=== PATIENT | male | born 1955 | race Caucasian/White ===

== ENCOUNTER 2019-12-08 10:11 | Inpatient (IN) | payer BC, SELFPAY ==
[~2019-12-08] VITALS: Ht 157.5 cm; Wt 71.7 kg
[2019-12-08 10:11] VITALS: BP_SYST 123
[2019-12-08 12:38] LABS: BASOPHILS # (AUTO) 0.1 K/uL (0.0-0.2); BASOPHILS % (AUTO) 0.6 % (0.0-2.0); EOSINOPHILS % (AUTO) 0.5 % (0.0-4.0); HEMOGLOBIN 18.3 g/dL (14.0-18.0); LYMPHOCYTES # (AUTO) 0.5 K/uL (1.0-5.5); LYMPHOCYTES % (AUTO) 5.1 % (20.5-51.5); MEAN CORPUSCULAR HEMOGLOBIN 32 pg (27-31); MEAN CORPUSCULAR HGB CONC 35 % (32-36); MEAN CORPUSCULAR VOLUME 93 fL (79.0-98.0); MONOCYTES # (AUTO) 0.5 K/uL (0.0-1.0); MONOCYTES % (AUTO) 5.1 % (1.7-9.3); NEUTROPHILS # (AUTO) 8.2 K/uL (1.8-7.7); NEUTROPHILS % (AUTO) 88.7 % (40.0-70.0); PLATELET COUNT (AUTO) 437 K/uL (130-430); RED CELL DISTRIBUTION WIDTH 13.1 % (9.0-15.0); WHITE BLOOD COUNT (AUTO) 9.2 K/uL (4.8-10.8)
[2019-12-08 12:47] LABS: CALCIUM 8.2 mg/dL (8.4-11.0); CREATININE 1.39 mg/dL (0.55-1.30); POTASSIUM 3.5 mmol/L (3.5-5.1)
[2019-12-08 12:52] LABS: ALBUMIN 2.4 g/dL (3.4-4.8); TOTAL BILIRUBIN 0.8 mg/dL (0.0-1.0)
[2019-12-08] MEDS ORDERED: NACL 0.9% 1,000 ML IV ONE (13:15)
[2019-12-08 13:18] LABS: INR 1.1 (0.80-1.20); PROTHROMBIN TIME 11.5 SECS (9.5-12.5)
[2019-12-08] MEDS ORDERED: AZITHROMYCIN 500 MG in NS 250 ML IV ONE (13:30)
[2019-12-08] MEDS ORDERED: cefTRIAXone 1 GM IVPB PREMIX 50 ML IV ONE (13:30)
[2019-12-08] MEDS ORDERED: AZITHROMYCIN 500 MG/VIAL (ZITHROMAX) IV ONE (14:00)
[2019-12-08 14:05] LABS: C-REACTIVE PROTEIN QUANT 25.1 mg/dL (0-0.5)
[2019-12-08 15:16] VITALS: BP_SYST 92
[2019-12-08] MEDS ORDERED: ALBUTEROL SULFATE 0.083% 2.5 MG/3 ML VIAL.NEB INH PRN (16:00)
[2019-12-08] MEDS ORDERED: FAMOTIDINE 20 MG TABLET PO ONE (16:00)
[2019-12-08] MEDS: NACL 0.9% 1,000 ML IV SCH (16:02)
[2019-12-08 16:18] VITALS: BP_SYST 115
[2019-12-08 19:02] LABS: BILIRUBIN,URINE NEGATIVE (NEGATIVE); BLOOD, URINE 2+ (NEGATIVE); COLOR,URINE YELLOW (YELLOW); GLUCOSE,URINE NEGATIVE (NEGATIVE); KETONES,URINE NEGATIVE (NEGATIVE); LEUKOCYTE ESTERASE ,URINE NEGATIVE (NEGATIVE); NITRITE, URINE NEGATIVE (NEGATIVE); PH,URINE 5.5 (5.0-8.0); PROTEIN URINE TRACE (NEGATIVE); UROBILINOGEN,URINE 0.2 (0.2-1.0)
[2019-12-08 19:06] LABS: CLARITY/URINE SLIGHTLY HAZY (CLEAR)
[2019-12-08 19:22] LABS: BACTERIA,URINE RARE /HPF (None Seen); RBC,URINE 0-3 /HPF (0-3); WBC,URINE NONE SEEN /HPF (0-3)
[2019-12-08 19:23] LABS: URIC ACID CRYSTALS,URINE 0-10 /HPF (None Seen)
[2019-12-08 20:00] VITALS: BP_SYST 111
[2019-12-09] VITALS: BP_SYST 114
[2019-12-09] MEDS: NACL 0.9% 1,000 ML IV SCH ×3 (02:40→18:22)
[2019-12-09] MEDS ORDERED: MORPHINE 2 MG/ML INJ. SYRINGE IVP ONE ×2 (05:00→07:15)
[2019-12-09] MEDS ORDERED: MORPHINE 2 MG/ML INJ. SYRINGE ONE (05:19)
[2019-12-09 07:04] LABS: BASOPHILS % (AUTO) 0.3 % (0.0-2.0); EOSINOPHILS # (AUTO) 0.1 K/uL (0.0-0.4); EOSINOPHILS % (AUTO) 1.1 % (0.0-4.0); HEMATOCRIT 41.2 % (36-54); LYMPHOCYTES # (AUTO) 0.5 K/uL (1.0-5.5); LYMPHOCYTES % (AUTO) 5.8 % (20.5-51.5); MEAN CORPUSCULAR HEMOGLOBIN 32 pg (27-31); MEAN CORPUSCULAR HGB CONC 34 % (32-36); MEAN CORPUSCULAR VOLUME 93 fL (79.0-98.0); MONOCYTES # (AUTO) 0.5 K/uL (0.0-1.0); MONOCYTES % (AUTO) 5.6 % (1.7-9.3); NEUTROPHILS # (AUTO) 7.4 K/uL (1.8-7.7); NEUTROPHILS % (AUTO) 87.2 % (40.0-70.0); PLATELET COUNT (AUTO) 310 K/uL (130-430); RED BLOOD CELL COUNT(AUTO) 4.42 MIL/uL (4.2-6.2); RED CELL DISTRIBUTION WIDTH 13.2 % (9.0-15.0); WHITE BLOOD COUNT (AUTO) 8.5 K/uL (4.8-10.8)
[2019-12-09 07:15] LABS: ALBUMIN 1.7 g/dL (3.4-4.8); CREATININE 1.23 mg/dL (0.55-1.30); POTASSIUM 3.7 mmol/L (3.5-5.1); THYROID STIMULATING HORMONE 3.38 uIu/mL (0.36-3.74); TOTAL BILIRUBIN 0.9 mg/dL (0.0-1.0)
[2019-12-09 07:19] LABS: CALCIUM 6.9 mg/dL (8.4-11.0)
[2019-12-09] MEDS ORDERED: MORPHINE 2 MG/ML INJ. SYRINGE IVP PRN (08:15)
[2019-12-09] MEDS: FAMOTIDINE 20 MG TABLET PO SCH (08:56)
[2019-12-09 09:21] VITALS: BP_SYST 122
[2019-12-09] MEDS ORDERED: ONDANSETRON HCL 4 MG/2 ML VIAL IVP PRN (12:00)
[2019-12-09] MEDS ORDERED: HYDROmorphone 1 MG INJ. 1 MG/ML AMPUL IVP PRN (12:00)
[2019-12-09 12:09] VITALS: BP_SYST 114
[2019-12-09] MEDS: AZITHROMYCIN 500 MG in NS 250 ML IV SCH (12:16)
[2019-12-09] MEDS: cefTRIAXone 1 GM in D5W 50 ML IV SCH (15:11)
[2019-12-09 16:36] VITALS: BP_SYST 116
[2019-12-09] MEDS ORDERED: ALBUTEROL MDI INHALATION 8 GM INH INH SCH (17:00)
[2019-12-09 20:15] VITALS: BP_SYST 155
[2019-12-09] MEDS: DOCUSATE SODIUM 250 MG CAPSULE PO SCH (20:45)
[2019-12-09] MEDS: ACETAMINOPHEN 325 MG TABLET PO PRN (23:11)
[2019-12-10 00:05] VITALS: BP_SYST 108
[2019-12-10] MEDS: ALBUTEROL SULFATE 0.083% 2.5 MG/3 ML VIAL.NEB INH PRN ×2 (00:56→01:00)
[2019-12-10] MEDS: NACL 0.9% 1,000 ML IV SCH (05:32)
[2019-12-10 06:42] LABS: BASOPHILS % (AUTO) 0.2 % (0.0-2.0); EOSINOPHILS % (AUTO) 0.4 % (0.0-4.0); HEMATOCRIT 37.4 % (36-54); HEMOGLOBIN 12.4 g/dL (14.0-18.0); LYMPHOCYTES # (AUTO) 0.6 K/uL (1.0-5.5); LYMPHOCYTES % (AUTO) 4.3 % (20.5-51.5); MEAN CORPUSCULAR HEMOGLOBIN 31 pg (27-31); MEAN CORPUSCULAR HGB CONC 33 % (32-36); MEAN CORPUSCULAR VOLUME 94 fL (79.0-98.0); MONOCYTES # (AUTO) 0.6 K/uL (0.0-1.0); MONOCYTES % (AUTO) 4.1 % (1.7-9.3); NEUTROPHILS # (AUTO) 12.5 K/uL (1.8-7.7); PLATELET COUNT (AUTO) 280 K/uL (130-430); RED BLOOD CELL COUNT(AUTO) 3.99 MIL/uL (4.2-6.2); RED CELL DISTRIBUTION WIDTH 12.9 % (9.0-15.0); WHITE BLOOD COUNT (AUTO) 13.7 K/uL (4.8-10.8)
[2019-12-10] MEDS: DOCUSATE SODIUM 250 MG CAPSULE PO SCH ×2 (08:15→21:00)
[2019-12-10] MEDS: FAMOTIDINE 20 MG TABLET PO SCH (08:15)
[2019-12-10 08:35] VITALS: BP_SYST 120
[2019-12-10 09:24] LABS: CALCIUM 7.1 mg/dL (8.4-11.0); CREATININE 1.21 mg/dL (0.55-1.30); POTASSIUM 3.8 mmol/L (3.5-5.1)
[2019-12-10 09:29] LABS: ALBUMIN 1.5 g/dL (3.4-4.8); TOTAL BILIRUBIN 0.6 mg/dL (0.0-1.0)
[2019-12-10] MEDS: HYDROXYCHLOROQUINE SULFATE 200 MG TABLET PO SCH ×2 (09:45→22:00)
[2019-12-10 11:53] VITALS: BP_SYST 105
[2019-12-10] MEDS ORDERED: ASCORBIC ACID 500 MG TABLET PO ONE (12:00)
[2019-12-10] MEDS: AZITHROMYCIN 500 MG in NS 250 ML IV SCH (12:19)
[2019-12-10 14:23] LABS: INR 1.2 (0.80-1.20)
[2019-12-10] MEDS: VANCOMYCIN HCL 1,750 MG in NS 500 ML IV SCH (14:53)
[2019-12-10] MEDS: cefTRIAXone 1 GM in D5W 50 ML IV SCH (14:54)
[2019-12-10 16:04] VITALS: BP_SYST 122
[2019-12-10 20:00] VITALS: BP_SYST 106
[2019-12-10] MEDS: ASCORBIC ACID 500 MG TABLET PO SCH (22:13)
[2019-12-11 00:30] VITALS: BP_SYST 106
[2019-12-11] MEDS: NACL 0.9% 1,000 ML IV SCH (07:06)
[2019-12-11 07:45] VITALS: BP_SYST 117
[2019-12-11] MEDS: ASCORBIC ACID 500 MG TABLET PO SCH ×2 (08:18→21:07)
[2019-12-11] MEDS: DOCUSATE SODIUM 250 MG CAPSULE PO SCH (08:18)
[2019-12-11] MEDS: HYDROXYCHLOROQUINE SULFATE 200 MG TABLET PO SCH ×2 (08:18→21:06)
[2019-12-11] MEDS: FAMOTIDINE 20 MG TABLET PO SCH (08:18)
[2019-12-11 08:56] LABS: ALBUMIN 1.5 g/dL (3.4-4.8); CALCIUM 7.1 mg/dL (8.4-11.0); CREATININE 1.03 mg/dL (0.55-1.30); POTASSIUM 3.8 mmol/L (3.5-5.1); TOTAL BILIRUBIN 0.7 mg/dL (0.0-1.0)
[2019-12-11] MEDS ORDERED: HEPARIN SODIUM,PORCINE 5000 UNITS/ML VIAL SUBCUT ONE (09:45)
[2019-12-11 12:00] VITALS: BP_SYST 124
[2019-12-11] MEDS: AZITHROMYCIN 500 MG in NS 250 ML IV SCH (12:31)
[2019-12-11] MEDS: cefTRIAXone 1 GM in D5W 50 ML IV SCH (13:36)
[2019-12-11] MEDS: VANCOMYCIN HCL 1,750 MG in NS 500 ML IV SCH (13:55)
[2019-12-11 16:00] VITALS: BP_SYST 116
[2019-12-11] MEDS: HEPARIN SODIUM,PORCINE 5000 UNITS/ML VIAL SUBCUT SCH (21:08)
[2019-12-11 21:10] VITALS: BP_SYST 130
[2019-12-12 00:40] VITALS: BP_SYST 101
[2019-12-12] MEDS: NACL 0.9% 1,000 ML IV SCH (04:17)
[2019-12-12] MEDS ORDERED: SODIUM CHLORIDE 500 MG TABLET PO ONE (04:45)
[2019-12-12 06:56] LABS: ALBUMIN 1.3 g/dL (3.4-4.8); CALCIUM 7.2 mg/dL (8.4-11.0); CREATININE 1.09 mg/dL (0.55-1.30); PHOSPHORUS 2.2 mg/dL (2.7-4.5); POTASSIUM 3.8 mmol/L (3.5-5.1); TOTAL BILIRUBIN 0.5 mg/dL (0.0-1.0)
[2019-12-12 08:00] VITALS: BP_SYST 129
[2019-12-12] MEDS: ASCORBIC ACID 500 MG TABLET PO SCH ×2 (08:12→20:54)
[2019-12-12] MEDS: FAMOTIDINE 20 MG TABLET PO SCH (08:12)
[2019-12-12] MEDS: HYDROXYCHLOROQUINE SULFATE 200 MG TABLET PO SCH ×2 (08:13→20:54)
[2019-12-12] MEDS: HEPARIN SODIUM,PORCINE 5000 UNITS/ML VIAL SUBCUT SCH ×2 (08:15→20:55)
[2019-12-12] MEDS ORDERED: NAPH,MB-DB/K PH,MBDB 250 MG TAB PO ONE (10:15)
[2019-12-12] MEDS ORDERED: METOPROLOL TARTRATE 25 MG TABLET PO ONE (10:45)
[2019-12-12 12:00] VITALS: BP_SYST 108
[2019-12-12 12:12] VITALS: BP_SYST 129
[2019-12-12] MEDS: AZITHROMYCIN 500 MG in NS 250 ML IV SCH (12:41)
[2019-12-12] MEDS: cefTRIAXone 1 GM in D5W 50 ML IV SCH (13:32)
[2019-12-12] MEDS: VANCOMYCIN HCL 1,500 MG in NS 250 ML IV SCH (15:11)
[2019-12-12 16:00] VITALS: BP_SYST 119
[2019-12-12 20:35] VITALS: BP_SYST 114
[2019-12-12] MEDS: NAPH,MB-DB/K PH,MBDB 250 MG TAB PO SCH (20:54)
[2019-12-13] MEDS ORDERED: VANCOMYCIN HCL 1000 MG/VIAL IV ONE (01:15)
[2019-12-13] MEDS ORDERED: VANCOMYCIN HCL 500 MG/VIAL IV ONE (01:16)
[2019-12-13 01:30] VITALS: BP_SYST 116
[2019-12-13] MEDS: VANCOMYCIN HCL 1,500 MG in NS 250 ML IV SCH (01:30)
[2019-12-13] MEDS: NACL 0.9% 1,000 ML IV SCH ×2 (01:30→22:05)
[2019-12-13 07:27] LABS: ALBUMIN 1.3 g/dL (3.4-4.8); CALCIUM 7.4 mg/dL (8.4-11.0); CREATININE 1.05 mg/dL (0.55-1.30); POTASSIUM 3.7 mmol/L (3.5-5.1); TOTAL BILIRUBIN 0.7 mg/dL (0.0-1.0)
[2019-12-13 08:30] VITALS: BP_SYST 130
[2019-12-13] MEDS: ASCORBIC ACID 500 MG TABLET PO SCH ×2 (08:40→22:05)
[2019-12-13] MEDS: HYDROXYCHLOROQUINE SULFATE 200 MG TABLET PO SCH ×2 (08:40→22:05)
[2019-12-13] MEDS: FAMOTIDINE 20 MG TABLET PO SCH (08:40)
[2019-12-13] MEDS: NAPH,MB-DB/K PH,MBDB 250 MG TAB PO SCH ×2 (08:40→22:05)
[2019-12-13] MEDS: HEPARIN SODIUM,PORCINE 5000 UNITS/ML VIAL SUBCUT SCH ×2 (08:42→22:05)
[2019-12-13 12:00] VITALS: BP_SYST 132
[2019-12-13] MEDS: cefTRIAXone 1 GM in D5W 50 ML IV SCH (13:10)
[2019-12-13 16:00] VITALS: BP_SYST 147
[2019-12-13 20:05] VITALS: BP_SYST 109
[2019-12-13] MEDS: DOXYCYCLINE HYCLATE 100 MG CAPSULE PO SCH (22:05)
[2019-12-13] MEDS ORDERED: METOPROLOL TARTRATE 25 MG TABLET PO ONE (23:45)
[2019-12-14 00:05] VITALS: BP_SYST 120
[2019-12-14] MEDS ORDERED: METOPROLOL TARTRATE 25 MG TABLET ONE (00:05)
[2019-12-14 08:30] VITALS: BP_SYST 121
[2019-12-14] MEDS: METOPROLOL TARTRATE 25 MG TABLET PO SCH ×2 (09:00→21:27)
[2019-12-14] MEDS: ASCORBIC ACID 500 MG TABLET PO SCH ×2 (09:41→20:30)
[2019-12-14] MEDS: HYDROXYCHLOROQUINE SULFATE 200 MG TABLET PO SCH ×2 (09:41→20:30)
[2019-12-14] MEDS: DOXYCYCLINE HYCLATE 100 MG CAPSULE PO SCH ×2 (09:41→20:30)
[2019-12-14] MEDS: FAMOTIDINE 20 MG TABLET PO SCH (09:41)
[2019-12-14] MEDS: NAPH,MB-DB/K PH,MBDB 250 MG TAB PO SCH ×2 (09:41→20:30)
[2019-12-14] MEDS: HEPARIN SODIUM,PORCINE 5000 UNITS/ML VIAL SUBCUT SCH ×2 (09:43→20:29)
[2019-12-14 10:15] LABS: ALBUMIN 1.6 g/dL (3.4-4.8); CALCIUM 7.9 mg/dL (8.4-11.0); CREATININE 1.07 mg/dL (0.55-1.30); POTASSIUM 3.7 mmol/L (3.5-5.1); TOTAL BILIRUBIN 0.9 mg/dL (0.0-1.0)
[2019-12-14 10:26] LABS: C-REACTIVE PROTEIN QUANT 24.5 mg/dL (0-0.5)
[2019-12-14 11:14] LABS: BASOPHILS # (AUTO) 0.1 K/uL (0.0-0.2); BASOPHILS % (AUTO) 0.7 % (0.0-2.0); EOSINOPHILS % (AUTO) 0.3 % (0.0-4.0); HEMATOCRIT 38.4 % (36-54); HEMOGLOBIN 12.5 g/dL (14.0-18.0); LYMPHOCYTES # (AUTO) 1.6 K/uL (1.0-5.5); LYMPHOCYTES % (AUTO) 12.6 % (20.5-51.5); MEAN CORPUSCULAR HEMOGLOBIN 31 pg (27-31); MEAN CORPUSCULAR HGB CONC 33 % (32-36); MEAN CORPUSCULAR VOLUME 95 fL (79.0-98.0); MONOCYTES # (AUTO) 0.8 K/uL (0.0-1.0); MONOCYTES % (AUTO) 6.3 % (1.7-9.3); NEUTROPHILS # (AUTO) 10.2 K/uL (1.8-7.7); NEUTROPHILS % (AUTO) 80.1 % (40.0-70.0); PLATELET COUNT (AUTO) 300 K/uL (130-430); RED BLOOD CELL COUNT(AUTO) 4.05 MIL/uL (4.2-6.2); RED CELL DISTRIBUTION WIDTH 13.6 % (9.0-15.0); WHITE BLOOD COUNT (AUTO) 12.7 K/uL (4.8-10.8)
[2019-12-14 11:29] VITALS: BP_SYST 136
[2019-12-14 11:59] LABS: ERYTHROCYTE SEDIMENTATION RATE 85 MM/HR (0-15)
[2019-12-14 13:33] LABS: CKMB RELATIVE INDEX 0.1 (0.0-2.9)
[2019-12-14] MEDS: cefTRIAXone 1 GM in D5W 50 ML IV SCH (14:32)
[2019-12-14 16:00] VITALS: BP_SYST 114
[2019-12-14] MEDS: NACL 0.9% 1,000 ML IV SCH (16:30)
[2019-12-14 21:00] VITALS: BP_SYST 116
[2019-12-15 00:07] VITALS: BP_SYST 129
[2019-12-15 08:00] VITALS: BP_SYST 121; BP_SYST 125
[2019-12-15] MEDS: FAMOTIDINE 20 MG TABLET PO SCH (08:30)
[2019-12-15] MEDS: DOXYCYCLINE HYCLATE 100 MG CAPSULE PO SCH ×2 (08:30→21:32)
[2019-12-15] MEDS: NAPH,MB-DB/K PH,MBDB 250 MG TAB PO SCH ×2 (08:30→21:32)
[2019-12-15] MEDS: METOPROLOL TARTRATE 25 MG TABLET PO SCH ×2 (08:30→21:33)
[2019-12-15] MEDS: ASCORBIC ACID 500 MG TABLET PO SCH ×2 (08:30→21:32)
[2019-12-15] MEDS: HEPARIN SODIUM,PORCINE 5000 UNITS/ML VIAL SUBCUT SCH ×2 (09:00→21:35)
[2019-12-15] MEDS: NACL 0.9% 1,000 ML IV SCH (13:30)
[2019-12-15] MEDS: cefTRIAXone 1 GM in D5W 50 ML IV SCH (14:00)
[2019-12-15 16:00] VITALS: BP_SYST 124
[2019-12-15 17:33] VITALS: BP_SYST 121
[2019-12-15 21:00] VITALS: BP_SYST 120
[2019-12-16] VITALS (7 sets, daily range): BP systolic 114–136
[2019-12-16] MEDS: NACL 0.9% 1,000 ML IV SCH (06:24)
[2019-12-16 07:09] LABS: CALCIUM 7.3 mg/dL (8.4-11.0); CREATININE 1.02 mg/dL (0.55-1.30); PHOSPHORUS 3.4 mg/dL (2.7-4.5); POTASSIUM 3.4 mmol/L (3.5-5.1)
[2019-12-16] MEDS ORDERED: POTASSIUM CHLORIDE 20 MEQ TAB.PRT.SR PO ONE (07:45)
[2019-12-16 07:47] LABS: C-REACTIVE PROTEIN QUANT 15.1 mg/dL (0-0.5)
[2019-12-16] MEDS: ASCORBIC ACID 500 MG TABLET PO SCH ×2 (08:09→20:59)
[2019-12-16] MEDS: NAPH,MB-DB/K PH,MBDB 250 MG TAB PO SCH ×2 (08:09→20:59)
[2019-12-16] MEDS: DOXYCYCLINE HYCLATE 100 MG CAPSULE PO SCH ×2 (08:09→20:59)
[2019-12-16] MEDS: FAMOTIDINE 20 MG TABLET PO SCH (08:09)
[2019-12-16] MEDS: HEPARIN SODIUM,PORCINE 5000 UNITS/ML VIAL SUBCUT SCH ×2 (08:13→21:03)
[2019-12-16] MEDS: METOPROLOL TARTRATE 25 MG TABLET PO SCH ×2 (08:14→20:59)
[2019-12-16] MEDS: PIPERACILLIN/TAZO 4.5GM/DEX-IS 100 ML IV SCH ×2 (14:19→20:59)
[2019-12-17] VITALS: BP_SYST 108
[2019-12-17 06:00] VITALS: BP_SYST 116
[2019-12-17] MEDS: PIPERACILLIN/TAZO 4.5GM/DEX-IS 100 ML IV SCH ×3 (06:21→22:14)
[2019-12-17 06:35] LABS: BASOPHILS # (AUTO) 0.1 K/uL (0.0-0.2); BASOPHILS % (AUTO) 0.6 % (0.0-2.0); EOSINOPHILS # (AUTO) 0.1 K/uL (0.0-0.4); EOSINOPHILS % (AUTO) 1.1 % (0.0-4.0); HEMATOCRIT 32.6 % (36-54); LYMPHOCYTES # (AUTO) 1.8 K/uL (1.0-5.5); LYMPHOCYTES % (AUTO) 17.3 % (20.5-51.5); MEAN CORPUSCULAR HEMOGLOBIN 31 pg (27-31); MEAN CORPUSCULAR HGB CONC 34 % (32-36); MEAN CORPUSCULAR VOLUME 93 fL (79.0-98.0); MONOCYTES # (AUTO) 0.9 K/uL (0.0-1.0); MONOCYTES % (AUTO) 8.2 % (1.7-9.3); NEUTROPHILS # (AUTO) 7.7 K/uL (1.8-7.7); NEUTROPHILS % (AUTO) 72.8 % (40.0-70.0); PLATELET COUNT (AUTO) 324 K/uL (130-430); RED BLOOD CELL COUNT(AUTO) 3.52 MIL/uL (4.2-6.2); RED CELL DISTRIBUTION WIDTH 13.6 % (9.0-15.0); WHITE BLOOD COUNT (AUTO) 10.6 K/uL (4.8-10.8)
[2019-12-17 06:54] LABS: ALBUMIN 1.5 g/dL (3.4-4.8); CALCIUM 7.5 mg/dL (8.4-11.0); CREATININE 1.12 mg/dL (0.55-1.30); POTASSIUM 3.9 mmol/L (3.5-5.1); TOTAL BILIRUBIN 0.6 mg/dL (0.0-1.0)
[2019-12-17] MEDS: NAPH,MB-DB/K PH,MBDB 250 MG TAB PO SCH ×2 (08:08→22:13)
[2019-12-17] MEDS: FAMOTIDINE 20 MG TABLET PO SCH (08:08)
[2019-12-17] MEDS: DOXYCYCLINE HYCLATE 100 MG CAPSULE PO SCH (08:09)
[2019-12-17] MEDS: ASCORBIC ACID 500 MG TABLET PO SCH ×2 (08:09→22:14)
[2019-12-17] MEDS: HEPARIN SODIUM,PORCINE 5000 UNITS/ML VIAL SUBCUT SCH ×2 (08:11→22:15)
[2019-12-17] MEDS: METOPROLOL TARTRATE 25 MG TABLET PO SCH ×2 (08:12→22:13)
[2019-12-17 08:43] VITALS: BP_SYST 119
[2019-12-17 12:42] VITALS: BP_SYST 114
[2019-12-17 17:00] VITALS: BP_SYST 118
[2019-12-17] MEDS: guaiFENesin/DEXTROMETHORPHAN 118 ML PO PRN (18:46)
[2019-12-17 19:45] VITALS: BP_SYST 114
[2019-12-18] VITALS: BP_SYST 105
[2019-12-18] MEDS: guaiFENesin/DEXTROMETHORPHAN 118 ML PO PRN (00:52)
[2019-12-18] MEDS: PIPERACILLIN/TAZO 4.5GM/DEX-IS 100 ML IV SCH ×3 (06:03→21:40)
[2019-12-18 08:00] VITALS: BP_SYST 106
[2019-12-18] MEDS: ASCORBIC ACID 500 MG TABLET PO SCH ×2 (08:36→21:40)
[2019-12-18] MEDS: METOPROLOL TARTRATE 25 MG TABLET PO SCH ×2 (08:36→21:39)
[2019-12-18] MEDS: FAMOTIDINE 20 MG TABLET PO SCH (08:36)
[2019-12-18] MEDS: NAPH,MB-DB/K PH,MBDB 250 MG TAB PO SCH (08:36)
[2019-12-18] MEDS: HEPARIN SODIUM,PORCINE 5000 UNITS/ML VIAL SUBCUT SCH ×2 (08:38→21:46)
[2019-12-18 09:57] LABS: CALCIUM 7.8 mg/dL (8.4-11.0); POTASSIUM 3.9 mmol/L (3.5-5.1)
[2019-12-18 10:25] LABS: CREATININE 1.28 mg/dL (0.55-1.30)
[2019-12-18 12:00] VITALS: BP_SYST 97
[2019-12-18 14:41] VITALS: BP_SYST 97
[2019-12-18 16:00] VITALS: BP_SYST 102
[2019-12-18 20:00] VITALS: BP_SYST 110
[2019-12-19] VITALS: BP_SYST 105
[2019-12-19] MEDS: ACETAMINOPHEN 325 MG TABLET PO PRN (00:33)
[2019-12-19 04:35] VITALS: BP_SYST 104
[2019-12-19] MEDS ORDERED: MORPHINE 2 MG/ML INJ. SYRINGE IVP ONE (05:00)
[2019-12-19] MEDS: PIPERACILLIN/TAZO 4.5GM/DEX-IS 100 ML IV SCH ×3 (06:02→21:19)
[2019-12-19 07:55] VITALS: BP_SYST 114
[2019-12-19] MEDS: METOPROLOL TARTRATE 25 MG TABLET PO SCH ×2 (09:35→21:19)
[2019-12-19] MEDS: ASCORBIC ACID 500 MG TABLET PO SCH ×2 (09:37→21:19)
[2019-12-19] MEDS: LIDOCAINE PATCH 5% 1 EA TP SCH (09:37)
[2019-12-19] MEDS: FAMOTIDINE 20 MG TABLET PO SCH (09:37)
[2019-12-19] MEDS: NAPH,MB-DB/K PH,MBDB 250 MG TAB PO SCH (09:39)
[2019-12-19] MEDS: HEPARIN SODIUM,PORCINE 5000 UNITS/ML VIAL SUBCUT SCH ×2 (09:40→21:20)
[2019-12-19 09:46] LABS: CALCIUM 8.5 mg/dL (8.4-11.0); CREATININE 1.2 mg/dL (0.55-1.30); POTASSIUM 3.8 mmol/L (3.5-5.1)
[2019-12-19] MEDS: guaiFENesin/DEXTROMETHORPHAN 118 ML PO PRN ×2 (12:31→21:31)
[2019-12-19 16:30] VITALS: BP_SYST 116
[2019-12-19 20:00] VITALS: BP_SYST 118
[2019-12-19] MEDS: BENZONATATE 100 MG CAPSULE (TESSALON) PO SCH (21:19)
[2019-12-20] VITALS: BP_SYST 111
[2019-12-20 04:00] VITALS: BP_SYST 100
[2019-12-20] MEDS: PIPERACILLIN/TAZO 4.5GM/DEX-IS 100 ML IV SCH ×3 (05:06→22:00)
[2019-12-20 08:00] VITALS: BP_SYST 104
[2019-12-20] MEDS: FAMOTIDINE 20 MG TABLET PO SCH (08:37)
[2019-12-20] MEDS: ASCORBIC ACID 500 MG TABLET PO SCH ×2 (08:37→21:00)
[2019-12-20] MEDS: LIDOCAINE PATCH 5% 1 EA TP SCH (08:37)
[2019-12-20] MEDS: NAPH,MB-DB/K PH,MBDB 250 MG TAB PO SCH (08:37)
[2019-12-20] MEDS: HEPARIN SODIUM,PORCINE 5000 UNITS/ML VIAL SUBCUT SCH ×2 (08:40→21:00)
[2019-12-20] MEDS: METOPROLOL TARTRATE 25 MG TABLET PO SCH ×2 (08:43→21:00)
[2019-12-20] MEDS: BENZONATATE 100 MG CAPSULE (TESSALON) PO SCH ×3 (08:46→21:00)
[2019-12-20 09:03] LABS: BASOPHILS # (AUTO) 0.1 K/uL (0.0-0.2); BASOPHILS % (AUTO) 0.9 % (0.0-2.0); EOSINOPHILS # (AUTO) 0.2 K/uL (0.0-0.4); EOSINOPHILS % (AUTO) 1.7 % (0.0-4.0); HEMOGLOBIN 11.6 g/dL (14.0-18.0); LYMPHOCYTES # (AUTO) 2.2 K/uL (1.0-5.5); LYMPHOCYTES % (AUTO) 18.6 % (20.5-51.5); MEAN CORPUSCULAR HEMOGLOBIN 31 pg (27-31); MEAN CORPUSCULAR HGB CONC 33 % (32-36); MEAN CORPUSCULAR VOLUME 93 fL (79.0-98.0); MONOCYTES # (AUTO) 1.1 K/uL (0.0-1.0); MONOCYTES % (AUTO) 9.1 % (1.7-9.3); NEUTROPHILS # (AUTO) 8.2 K/uL (1.8-7.7); NEUTROPHILS % (AUTO) 69.7 % (40.0-70.0); PLATELET COUNT (AUTO) 469 K/uL (130-430); RED BLOOD CELL COUNT(AUTO) 3.76 MIL/uL (4.2-6.2); RED CELL DISTRIBUTION WIDTH 13.7 % (9.0-15.0); WHITE BLOOD COUNT (AUTO) 11.8 K/uL (4.8-10.8)
[2019-12-20 09:21] LABS: CALCIUM 8.1 mg/dL (8.4-11.0); CREATININE 1.13 mg/dL (0.55-1.30); PHOSPHORUS 3.2 mg/dL (2.7-4.5)
[2019-12-20 09:52] LABS: ERYTHROCYTE SEDIMENTATION RATE 94 MM/HR (0-15)
[2019-12-20 12:00] VITALS: BP_SYST 108
[2019-12-20 16:00] VITALS: BP_SYST 110
[2019-12-20 20:00] VITALS: BP_SYST 106
[2019-12-21] VITALS (8 sets, daily range): BP systolic 101–115
[2019-12-21] MEDS: PIPERACILLIN/TAZO 4.5GM/DEX-IS 100 ML IV SCH ×3 (06:00→22:50)
[2019-12-21 09:00] LABS: CALCIUM 8.2 mg/dL (8.4-11.0); CREATININE 1.22 mg/dL (0.55-1.30)
[2019-12-21] MEDS: METOPROLOL TARTRATE 25 MG TABLET PO SCH ×2 (09:00→21:30)
[2019-12-21] MEDS: BENZONATATE 100 MG CAPSULE (TESSALON) PO SCH ×3 (09:01→21:30)
[2019-12-21] MEDS: FAMOTIDINE 20 MG TABLET PO SCH (09:01)
[2019-12-21] MEDS: ASCORBIC ACID 500 MG TABLET PO SCH ×2 (09:02→21:30)
[2019-12-21] MEDS: LIDOCAINE PATCH 5% 1 EA TP SCH (09:02)
[2019-12-21] MEDS: HEPARIN SODIUM,PORCINE 5000 UNITS/ML VIAL SUBCUT SCH ×2 (09:09→21:30)
[2019-12-21] MEDS: NAPH,MB-DB/K PH,MBDB 250 MG TAB PO SCH (09:10)
[2019-12-22] MEDS: PIPERACILLIN/TAZO 4.5GM/DEX-IS 100 ML IV SCH ×3 (06:35→22:48)
[2019-12-22 08:00] VITALS: BP_SYST 94
[2019-12-22] MEDS: METOPROLOL TARTRATE 25 MG TABLET PO SCH ×2 (09:00→20:35)
[2019-12-22] MEDS: NAPH,MB-DB/K PH,MBDB 250 MG TAB PO SCH (10:04)
[2019-12-22] MEDS: LIDOCAINE PATCH 5% 1 EA TP SCH (10:04)
[2019-12-22] MEDS: BENZONATATE 100 MG CAPSULE (TESSALON) PO SCH ×3 (10:04→20:35)
[2019-12-22] MEDS: FAMOTIDINE 20 MG TABLET PO SCH (10:04)
[2019-12-22] MEDS: ASCORBIC ACID 500 MG TABLET PO SCH ×2 (10:04→20:35)
[2019-12-22 10:21] LABS: CALCIUM 8.5 mg/dL (8.4-11.0); CREATININE 1.27 mg/dL (0.55-1.30); POTASSIUM 3.6 mmol/L (3.5-5.1)
[2019-12-22] MEDS ORDERED: guaiFENesin ER 600 MG TAB PO ONE (10:45)
[2019-12-22 12:00] VITALS: BP_SYST 132
[2019-12-22] MEDS: HEPARIN SODIUM,PORCINE 5000 UNITS/ML VIAL SUBCUT SCH ×2 (14:57→22:46)
[2019-12-22 16:00] VITALS: BP_SYST 127
[2019-12-22 20:30] VITALS: BP_SYST 106
[2019-12-22] MEDS: guaiFENesin ER 600 MG TAB PO SCH (20:35)
[2019-12-22 23:05] VITALS: BP_SYST 112
[2019-12-23] MEDS: HEPARIN SODIUM,PORCINE 5000 UNITS/ML VIAL SUBCUT SCH ×3 (05:13→22:40)
[2019-12-23] MEDS: PIPERACILLIN/TAZO 4.5GM/DEX-IS 100 ML IV SCH ×2 (05:14→15:00)
[2019-12-23 08:30] VITALS: BP_SYST 111
[2019-12-23] MEDS: NAPH,MB-DB/K PH,MBDB 250 MG TAB PO SCH (09:08)
[2019-12-23] MEDS: guaiFENesin ER 600 MG TAB PO SCH ×2 (09:08→22:44)
[2019-12-23] MEDS: LIDOCAINE PATCH 5% 1 EA TP SCH (09:08)
[2019-12-23] MEDS: BENZONATATE 100 MG CAPSULE (TESSALON) PO SCH ×3 (09:08→22:41)
[2019-12-23] MEDS: ASCORBIC ACID 500 MG TABLET PO SCH ×2 (09:08→22:41)
[2019-12-23] MEDS: FAMOTIDINE 20 MG TABLET PO SCH (09:08)
[2019-12-23] MEDS: METOPROLOL TARTRATE 25 MG TABLET PO SCH ×2 (09:08→22:42)
[2019-12-23 10:22] LABS: CALCIUM 8.5 mg/dL (8.4-11.0); CREATININE 1.26 mg/dL (0.55-1.30)
[2019-12-23 12:30] VITALS: BP_SYST 103
[2019-12-23 16:00] VITALS: BP_SYST 113
[2019-12-23] MEDS ORDERED: COMMUNICATION ORDER XX ONE (17:30)
[2019-12-23 22:00] VITALS: BP_SYST 110
[2019-12-23] MEDS: PIPERACILLIN/TAZO 4.5 GM in NS 100 ML IV SCH (22:47)
[2019-12-24 01:15] VITALS: BP_SYST 99
[2019-12-24] MEDS: HEPARIN SODIUM,PORCINE 5000 UNITS/ML VIAL SUBCUT SCH ×3 (05:44→21:41)
[2019-12-24] MEDS: PIPERACILLIN/TAZO 4.5 GM in NS 100 ML IV SCH ×3 (05:45→21:03)
[2019-12-24 05:55] VITALS: BP_SYST 98
[2019-12-24 08:30] VITALS: BP_SYST 111
[2019-12-24] MEDS: guaiFENesin ER 600 MG TAB PO SCH ×2 (09:35→21:03)
[2019-12-24] MEDS: FAMOTIDINE 20 MG TABLET PO SCH (09:35)
[2019-12-24] MEDS: BENZONATATE 100 MG CAPSULE (TESSALON) PO SCH ×3 (09:35→21:02)
[2019-12-24] MEDS: METOPROLOL TARTRATE 25 MG TABLET PO SCH ×2 (09:35→21:39)
[2019-12-24] MEDS: CHOLECALCIFEROL (VITAMIN D3) 2,000 UNIT TABLET PO SCH (09:35)
[2019-12-24] MEDS: ASCORBIC ACID 500 MG TABLET PO SCH ×2 (09:35→21:03)
[2019-12-24] MEDS: NAPH,MB-DB/K PH,MBDB 250 MG TAB PO SCH (09:35)
[2019-12-24] MEDS: LIDOCAINE PATCH 5% 1 EA TP SCH (09:35)
[2019-12-24 10:12] LABS: CALCIUM 8.5 mg/dL (8.4-11.0); CREATININE 1.2 mg/dL (0.55-1.30); POTASSIUM 3.7 mmol/L (3.5-5.1)
[2019-12-24 10:19] LABS: BASOPHILS # (AUTO) 0.2 K/uL (0.0-0.2); BASOPHILS % (AUTO) 1.5 % (0.0-2.0); EOSINOPHILS # (AUTO) 0.5 K/uL (0.0-0.4); EOSINOPHILS % (AUTO) 4.2 % (0.0-4.0); HEMATOCRIT 33.8 % (36-54); HEMOGLOBIN 11.4 g/dL (14.0-18.0); LYMPHOCYTES # (AUTO) 2.4 K/uL (1.0-5.5); LYMPHOCYTES % (AUTO) 21.1 % (20.5-51.5); MEAN CORPUSCULAR HEMOGLOBIN 31 pg (27-31); MEAN CORPUSCULAR HGB CONC 34 % (32-36); MEAN CORPUSCULAR VOLUME 93 fL (79.0-98.0); MONOCYTES # (AUTO) 0.8 K/uL (0.0-1.0); MONOCYTES % (AUTO) 6.8 % (1.7-9.3); NEUTROPHILS # (AUTO) 7.6 K/uL (1.8-7.7); NEUTROPHILS % (AUTO) 66.4 % (40.0-70.0); PLATELET COUNT (AUTO) 671 K/uL (130-430); RED BLOOD CELL COUNT(AUTO) 3.63 MIL/uL (4.2-6.2); RED CELL DISTRIBUTION WIDTH 13.7 % (9.0-15.0); WHITE BLOOD COUNT (AUTO) 11.4 K/uL (4.8-10.8)
[2019-12-24 12:20] VITALS: BP_SYST 107
[2019-12-24 16:00] VITALS: BP_SYST 121
[2019-12-24] MEDS ORDERED: IVERMECTIN 3 MG TABLET PO ONE (17:15)
[2019-12-24 21:00] VITALS: BP_SYST 108
[2019-12-25 00:15] VITALS: BP_SYST 97
[2019-12-25] MEDS: PIPERACILLIN/TAZO 4.5 GM in NS 100 ML IV SCH ×3 (05:34→22:00)
[2019-12-25] MEDS: HEPARIN SODIUM,PORCINE 5000 UNITS/ML VIAL SUBCUT SCH ×3 (05:37→22:00)
[2019-12-25 06:00] VITALS: BP_SYST 99
[2019-12-25] MEDS: FAMOTIDINE 20 MG TABLET PO SCH (09:24)
[2019-12-25] MEDS: LIDOCAINE PATCH 5% 1 EA TP SCH (09:24)
[2019-12-25] MEDS: NAPH,MB-DB/K PH,MBDB 250 MG TAB PO SCH (09:24)
[2019-12-25] MEDS: CHOLECALCIFEROL (VITAMIN D3) 2,000 UNIT TABLET PO SCH (09:24)
[2019-12-25] MEDS: METOPROLOL TARTRATE 25 MG TABLET PO SCH ×2 (09:24→22:10)
[2019-12-25] MEDS: guaiFENesin ER 600 MG TAB PO SCH ×2 (09:24→21:58)
[2019-12-25] MEDS: ASCORBIC ACID 500 MG TABLET PO SCH ×2 (09:24→21:58)
[2019-12-25 09:30] VITALS: BP_SYST 109
[2019-12-25] MEDS: BENZONATATE 100 MG CAPSULE (TESSALON) PO SCH ×3 (09:35→21:58)
[2019-12-25 12:19] VITALS: BP_SYST 99
[2019-12-25 16:15] VITALS: BP_SYST 112
[2019-12-25 22:00] VITALS: BP_SYST 105
[2019-12-26 00:45] VITALS: BP_SYST 101
[2019-12-26] MEDS: PIPERACILLIN/TAZO 4.5 GM in NS 100 ML IV SCH ×3 (05:29→21:32)
[2019-12-26] MEDS: HEPARIN SODIUM,PORCINE 5000 UNITS/ML VIAL SUBCUT SCH ×3 (05:31→21:31)
[2019-12-26 05:55] VITALS: BP_SYST 97
[2019-12-26 08:00] VITALS: BP_SYST 115
[2019-12-26] MEDS: LIDOCAINE PATCH 5% 1 EA TP SCH (08:32)
[2019-12-26] MEDS: CHOLECALCIFEROL (VITAMIN D3) 2,000 UNIT TABLET PO SCH (08:33)
[2019-12-26] MEDS: ASCORBIC ACID 500 MG TABLET PO SCH ×2 (08:33→21:33)
[2019-12-26] MEDS: FAMOTIDINE 20 MG TABLET PO SCH (08:33)
[2019-12-26] MEDS: guaiFENesin ER 600 MG TAB PO SCH ×2 (08:33→21:33)
[2019-12-26] MEDS: BENZONATATE 100 MG CAPSULE (TESSALON) PO SCH ×3 (08:33→21:32)
[2019-12-26] MEDS: NAPH,MB-DB/K PH,MBDB 250 MG TAB PO SCH (08:33)
[2019-12-26] MEDS: METOPROLOL TARTRATE 25 MG TABLET PO SCH ×2 (09:00→14:46)
[2019-12-26 12:00] VITALS: BP_SYST 108
[2019-12-26 16:00] VITALS: BP_SYST 123
[2019-12-26 21:20] VITALS: BP_SYST 116
[2019-12-27 00:01] VITALS: BP_SYST 100
[2019-12-27] MEDS: PIPERACILLIN/TAZO 4.5 GM in NS 100 ML IV SCH ×3 (05:12→21:00)
[2019-12-27] MEDS: HEPARIN SODIUM,PORCINE 5000 UNITS/ML VIAL SUBCUT SCH ×3 (05:13→21:01)
[2019-12-27] MEDS: guaiFENesin ER 600 MG TAB PO SCH ×2 (07:48→20:54)
[2019-12-27] MEDS: CHOLECALCIFEROL (VITAMIN D3) 2,000 UNIT TABLET PO SCH (07:49)
[2019-12-27] MEDS: ASCORBIC ACID 500 MG TABLET PO SCH ×2 (07:49→20:54)
[2019-12-27] MEDS: BENZONATATE 100 MG CAPSULE (TESSALON) PO SCH ×3 (07:49→20:54)
[2019-12-27] MEDS: FAMOTIDINE 20 MG TABLET PO SCH (07:49)
[2019-12-27] MEDS: NAPH,MB-DB/K PH,MBDB 250 MG TAB PO SCH (07:50)
[2019-12-27] MEDS: LIDOCAINE PATCH 5% 1 EA TP SCH (07:50)
[2019-12-27 08:00] VITALS: BP_SYST 107
[2019-12-27] MEDS: METOPROLOL TARTRATE 25 MG TABLET PO SCH ×2 (08:41→21:50)
[2019-12-27 12:00] VITALS: BP_SYST 119
[2019-12-27 16:00] VITALS: BP_SYST 114
[2019-12-27 21:05] VITALS: BP_SYST 114
[2019-12-28 00:05] VITALS: BP_SYST 101
[2019-12-28] MEDS: PIPERACILLIN/TAZO 4.5 GM in NS 100 ML IV SCH (05:00)
[2019-12-28] MEDS: HEPARIN SODIUM,PORCINE 5000 UNITS/ML VIAL SUBCUT SCH ×3 (05:01→22:32)
[2019-12-28 07:45] VITALS: BP_SYST 117
[2019-12-28] MEDS: METOPROLOL TARTRATE 25 MG TABLET PO SCH ×3 (08:31→20:21)
[2019-12-28] MEDS: FAMOTIDINE 20 MG TABLET PO SCH (08:32)
[2019-12-28] MEDS: NAPH,MB-DB/K PH,MBDB 250 MG TAB PO SCH (08:32)
[2019-12-28] MEDS: guaiFENesin ER 600 MG TAB PO SCH ×2 (08:33→20:21)
[2019-12-28] MEDS: BENZONATATE 100 MG CAPSULE (TESSALON) PO SCH ×3 (08:33→20:20)
[2019-12-28] MEDS: ASCORBIC ACID 500 MG TABLET PO SCH ×2 (08:34→20:21)
[2019-12-28] MEDS: CHOLECALCIFEROL (VITAMIN D3) 2,000 UNIT TABLET PO SCH (08:34)
[2019-12-28] MEDS: LIDOCAINE PATCH 5% 1 EA TP SCH (08:38)
[2019-12-28] MEDS: guaiFENesin/DEXTROMETHORPHAN 10 ML UDC PO PRN (09:24)
[2019-12-28 11:08] VITALS: BP_SYST 138
[2019-12-28] MEDS: ALBUTEROL MDI INHALATION 8 GM INH INH PRN (11:32)
[2019-12-28 20:00] VITALS: BP_SYST 124
[2019-12-29 00:05] VITALS: BP_SYST 105
[2019-12-29] MEDS: HEPARIN SODIUM,PORCINE 5000 UNITS/ML VIAL SUBCUT SCH ×3 (05:50→21:02)
[2019-12-29 08:00] VITALS: BP_SYST 104
[2019-12-29] MEDS: ASCORBIC ACID 500 MG TABLET PO SCH ×2 (09:52→21:02)
[2019-12-29] MEDS: LIDOCAINE PATCH 5% 1 EA TP SCH (09:52)
[2019-12-29] MEDS: guaiFENesin ER 600 MG TAB PO SCH ×2 (09:53→21:01)
[2019-12-29] MEDS: CHOLECALCIFEROL (VITAMIN D3) 2,000 UNIT TABLET PO SCH (09:53)
[2019-12-29] MEDS: NAPH,MB-DB/K PH,MBDB 250 MG TAB PO SCH (09:53)
[2019-12-29] MEDS: METOPROLOL TARTRATE 25 MG TABLET PO SCH ×2 (09:53→21:04)
[2019-12-29] MEDS: FAMOTIDINE 20 MG TABLET PO SCH (09:53)
[2019-12-29] MEDS: BENZONATATE 100 MG CAPSULE (TESSALON) PO SCH (09:53)
[2019-12-29 13:08] VITALS: BP_SYST 114
[2019-12-29 14:51] LABS: BASOPHILS # (AUTO) 0.1 K/uL (0.0-0.2); BASOPHILS % (AUTO) 0.8 % (0.0-2.0); EOSINOPHILS # (AUTO) 0.6 K/uL (0.0-0.4); EOSINOPHILS % (AUTO) 3.9 % (0.0-4.0); HEMATOCRIT 34.9 % (36-54); HEMOGLOBIN 11.6 g/dL (14.0-18.0); LYMPHOCYTES # (AUTO) 2.9 K/uL (1.0-5.5); LYMPHOCYTES % (AUTO) 18.3 % (20.5-51.5); MEAN CORPUSCULAR HEMOGLOBIN 30 pg (27-31); MEAN CORPUSCULAR HGB CONC 33 % (32-36); MEAN CORPUSCULAR VOLUME 91 fL (79.0-98.0); MONOCYTES # (AUTO) 0.9 K/uL (0.0-1.0); MONOCYTES % (AUTO) 5.8 % (1.7-9.3); NEUTROPHILS # (AUTO) 11.1 K/uL (1.8-7.7); NEUTROPHILS % (AUTO) 71.2 % (40.0-70.0); PLATELET COUNT (AUTO) 552 K/uL (130-430); RED BLOOD CELL COUNT(AUTO) 3.82 MIL/uL (4.2-6.2); RED CELL DISTRIBUTION WIDTH 14.1 % (9.0-15.0); WHITE BLOOD COUNT (AUTO) 15.6 K/uL (4.8-10.8)
[2019-12-29 15:10] LABS: CALCIUM 8.3 mg/dL (8.4-11.0); CREATININE 1.17 mg/dL (0.55-1.30); POTASSIUM 3.7 mmol/L (3.5-5.1); TOTAL BILIRUBIN 0.2 mg/dL (0.0-1.0)
[2019-12-29 16:31] LABS: ERYTHROCYTE SEDIMENTATION RATE 86 MM/HR (0-15)
[2019-12-29 17:45] VITALS: BP_SYST 103
[2019-12-29 20:55] VITALS: BP_SYST 102
[2019-12-29 23:51] VITALS: BP_SYST 101
[2019-12-30] MEDS: guaiFENesin/DEXTROMETHORPHAN 10 ML UDC PO PRN (05:37)
[2019-12-30] MEDS: HEPARIN SODIUM,PORCINE 5000 UNITS/ML VIAL SUBCUT SCH ×3 (05:38→21:11)
[2019-12-30 08:00] VITALS: BP_SYST 106
[2019-12-30] MEDS: LIDOCAINE PATCH 5% 1 EA TP SCH (09:02)
[2019-12-30] MEDS: guaiFENesin ER 600 MG TAB PO SCH ×2 (09:02→21:11)
[2019-12-30] MEDS: FAMOTIDINE 20 MG TABLET PO SCH (09:03)
[2019-12-30] MEDS: ASCORBIC ACID 500 MG TABLET PO SCH ×2 (09:03→21:11)
[2019-12-30] MEDS: METOPROLOL TARTRATE 25 MG TABLET PO SCH ×2 (09:03→21:12)
[2019-12-30] MEDS: CHOLECALCIFEROL (VITAMIN D3) 2,000 UNIT TABLET PO SCH (09:03)
[2019-12-30 12:25] VITALS: BP_SYST 103
[2019-12-30] MEDS: DIPHENHYDRAMINE HCL 25 MG CAPSULE PO PRN (14:11)
[2019-12-30 15:49] VITALS: BP_SYST 103
[2019-12-30 16:23] VITALS: BP_SYST 126
[2019-12-30 20:00] VITALS: BP_SYST 113
[2019-12-31] VITALS: BP_SYST 117
[2019-12-31 04:00] VITALS: BP_SYST 112
[2019-12-31] MEDS: HEPARIN SODIUM,PORCINE 5000 UNITS/ML VIAL SUBCUT SCH ×3 (05:50→22:47)
[2019-12-31 08:00] VITALS: BP_SYST 106
[2019-12-31] MEDS: LIDOCAINE PATCH 5% 1 EA TP SCH (08:30)
[2019-12-31] MEDS: guaiFENesin ER 600 MG TAB PO SCH ×2 (09:00→20:50)
[2019-12-31] MEDS: CHOLECALCIFEROL (VITAMIN D3) 2,000 UNIT TABLET PO SCH (09:00)
[2019-12-31] MEDS: FAMOTIDINE 20 MG TABLET PO SCH (10:30)
[2019-12-31] MEDS: ASCORBIC ACID 500 MG TABLET PO SCH ×2 (10:30→20:51)
[2019-12-31] MEDS: METOPROLOL TARTRATE 25 MG TABLET PO SCH ×2 (10:30→20:48)
[2019-12-31 12:00] VITALS: BP_SYST 114
[2019-12-31 16:00] VITALS: BP_SYST 88
[2019-12-31 20:00] VITALS: BP_SYST 109
[2019-12-31] MEDS: DIPHENHYDRAMINE HCL 25 MG CAPSULE PO PRN (22:48)
[2019-12-31] MEDS: ALBUTEROL MDI INHALATION 8 GM INH INH PRN (23:53)
[2020-01-01] VITALS (7 sets, daily range): BP systolic 97–116
[2020-01-01] MEDS: HEPARIN SODIUM,PORCINE 5000 UNITS/ML VIAL SUBCUT SCH ×3 (06:50→22:41)
[2020-01-01] MEDS: ASCORBIC ACID 500 MG TABLET PO SCH ×2 (09:06→20:41)
[2020-01-01] MEDS: guaiFENesin ER 600 MG TAB PO SCH ×2 (09:06→20:41)
[2020-01-01] MEDS: FAMOTIDINE 20 MG TABLET PO SCH (09:06)
[2020-01-01] MEDS: METOPROLOL TARTRATE 25 MG TABLET PO SCH ×2 (09:06→20:42)
[2020-01-01] MEDS: CHOLECALCIFEROL (VITAMIN D3) 2,000 UNIT TABLET PO SCH (09:07)
[2020-01-01] MEDS: LIDOCAINE PATCH 5% 1 EA TP SCH (09:08)
[2020-01-01] MEDS: DIPHENHYDRAMINE HCL 25 MG CAPSULE PO PRN (22:35)
[2020-01-02] VITALS: BP_SYST 120
[2020-01-02] MEDS: HEPARIN SODIUM,PORCINE 5000 UNITS/ML VIAL SUBCUT SCH ×3 (06:22→21:35)
[2020-01-02] MEDS: ALBUTEROL MDI INHALATION 8 GM INH INH PRN (06:44)
[2020-01-02] MEDS: CHOLECALCIFEROL (VITAMIN D3) 2,000 UNIT TABLET PO SCH (08:45)
[2020-01-02] MEDS: LIDOCAINE PATCH 5% 1 EA TP SCH (08:45)
[2020-01-02] MEDS: guaiFENesin ER 600 MG TAB PO SCH ×2 (08:45→21:34)
[2020-01-02] MEDS: FAMOTIDINE 20 MG TABLET PO SCH (08:45)
[2020-01-02] MEDS: ASCORBIC ACID 500 MG TABLET PO SCH ×2 (08:45→21:34)
[2020-01-02] MEDS: METOPROLOL TARTRATE 25 MG TABLET PO SCH ×2 (08:45→21:33)
[2020-01-02 09:24] VITALS: BP_SYST 92
[2020-01-02 12:38] VITALS: BP_SYST 116
[2020-01-02 16:46] VITALS: BP_SYST 118
[2020-01-02 20:00] VITALS: BP_SYST 103
[2020-01-02] MEDS: DIPHENHYDRAMINE HCL 25 MG CAPSULE PO PRN (21:32)
[2020-01-03] VITALS: BP_SYST 95
[2020-01-03] MEDS: HEPARIN SODIUM,PORCINE 5000 UNITS/ML VIAL SUBCUT SCH ×3 (06:05→21:39)
[2020-01-03] MEDS: METOPROLOL TARTRATE 25 MG TABLET PO SCH ×2 (09:14→21:00)
[2020-01-03] MEDS: LIDOCAINE PATCH 5% 1 EA TP SCH (09:15)
[2020-01-03] MEDS: guaiFENesin ER 600 MG TAB PO SCH ×2 (09:15→21:37)
[2020-01-03] MEDS: FAMOTIDINE 20 MG TABLET PO SCH (09:15)
[2020-01-03] MEDS: CHOLECALCIFEROL (VITAMIN D3) 2,000 UNIT TABLET PO SCH (09:15)
[2020-01-03] MEDS: ASCORBIC ACID 500 MG TABLET PO SCH ×2 (09:15→21:37)
[2020-01-03 12:39] VITALS: BP_SYST 86
[2020-01-03 18:38] VITALS: BP_SYST 96
[2020-01-03 19:00] VITALS: BP_SYST 98
[2020-01-03 20:00] VITALS: BP_SYST 98
[2020-01-04] VITALS: BP_SYST 99
[2020-01-04 04:00] VITALS: BP_SYST 99
[2020-01-04] MEDS: HEPARIN SODIUM,PORCINE 5000 UNITS/ML VIAL SUBCUT SCH ×3 (05:50→23:00)
[2020-01-04 08:00] VITALS: BP_SYST 110
[2020-01-04] MEDS: ASCORBIC ACID 500 MG TABLET PO SCH ×2 (09:01→23:00)
[2020-01-04] MEDS: guaiFENesin ER 600 MG TAB PO SCH ×2 (09:01→23:00)
[2020-01-04] MEDS: FAMOTIDINE 20 MG TABLET PO SCH (09:01)
[2020-01-04] MEDS: LIDOCAINE PATCH 5% 1 EA TP SCH (09:02)
[2020-01-04] MEDS: CHOLECALCIFEROL (VITAMIN D3) 2,000 UNIT TABLET PO SCH (09:02)
[2020-01-04] MEDS: METOPROLOL TARTRATE 25 MG TABLET PO SCH ×2 (09:03→23:00)
[2020-01-04 11:45] LABS: BASOPHILS # (AUTO) 0.1 K/uL (0.0-0.2); BASOPHILS % (AUTO) 0.6 % (0.0-2.0); EOSINOPHILS # (AUTO) 0.8 K/uL (0.0-0.4); HEMATOCRIT 32.7 % (36-54); HEMOGLOBIN 10.8 g/dL (14.0-18.0); MEAN CORPUSCULAR HEMOGLOBIN 30 pg (27-31); MEAN CORPUSCULAR HGB CONC 33 % (32-36); MEAN CORPUSCULAR VOLUME 90 fL (79.0-98.0); MONOCYTES # (AUTO) 1.3 K/uL (0.0-1.0); MONOCYTES % (AUTO) 9.3 % (1.7-9.3); NEUTROPHILS # (AUTO) 8.6 K/uL (1.8-7.7); NEUTROPHILS % (AUTO) 62.1 % (40.0-70.0); PLATELET COUNT (AUTO) 421 K/uL (130-430); RED BLOOD CELL COUNT(AUTO) 3.64 MIL/uL (4.2-6.2); RED CELL DISTRIBUTION WIDTH 13.9 % (9.0-15.0); WHITE BLOOD COUNT (AUTO) 13.8 K/uL (4.8-10.8)
[2020-01-04 12:24] VITALS: BP_SYST 103
[2020-01-04 12:35] LABS: ERYTHROCYTE SEDIMENTATION RATE 92 MM/HR (0-15)
[2020-01-04 16:26] VITALS: BP_SYST 121
[2020-01-04 20:05] VITALS: BP_SYST 105
[2020-01-05 00:45] VITALS: BP_SYST 112
[2020-01-05] MEDS: HEPARIN SODIUM,PORCINE 5000 UNITS/ML VIAL SUBCUT SCH ×3 (05:40→22:00)
[2020-01-05 08:00] VITALS: BP_SYST 116
[2020-01-05] MEDS: METOPROLOL TARTRATE 25 MG TABLET PO SCH ×2 (08:41→22:00)
[2020-01-05] MEDS: ASCORBIC ACID 500 MG TABLET PO SCH ×2 (08:42→22:00)
[2020-01-05] MEDS: CHOLECALCIFEROL (VITAMIN D3) 2,000 UNIT TABLET PO SCH (08:42)
[2020-01-05] MEDS: FAMOTIDINE 20 MG TABLET PO SCH (08:42)
[2020-01-05] MEDS: guaiFENesin ER 600 MG TAB PO SCH ×2 (08:42→22:00)
[2020-01-05] MEDS: LIDOCAINE PATCH 5% 1 EA TP SCH (08:42)
[2020-01-05 09:21] VITALS: BP_SYST 116
[2020-01-05 12:29] VITALS: BP_SYST 116
[2020-01-05 16:30] VITALS: BP_SYST 127
[2020-01-05 20:15] VITALS: BP_SYST 114
[2020-01-06 00:05] VITALS: BP_SYST 111
[2020-01-06] MEDS: HEPARIN SODIUM,PORCINE 5000 UNITS/ML VIAL SUBCUT SCH ×3 (05:45→20:17)
[2020-01-06] MEDS: CHOLECALCIFEROL (VITAMIN D3) 2,000 UNIT TABLET PO SCH (09:00)
[2020-01-06] MEDS: FAMOTIDINE 20 MG TABLET PO SCH (09:00)
[2020-01-06] MEDS: ASCORBIC ACID 500 MG TABLET PO SCH ×2 (09:00→20:16)
[2020-01-06] MEDS: LIDOCAINE PATCH 5% 1 EA TP SCH (09:00)
[2020-01-06] MEDS: guaiFENesin ER 600 MG TAB PO SCH ×2 (09:00→20:16)
[2020-01-06 10:31] VITALS: BP_SYST 109
[2020-01-06 12:00] VITALS: BP_SYST 109
[2020-01-06 19:00] VITALS: BP_SYST 114
[2020-01-06] MEDS: METOPROLOL TARTRATE 25 MG TABLET PO SCH (20:52)
[2020-01-06 20:53] VITALS: BP_SYST 116
[2020-01-07 00:12] VITALS: BP_SYST 106
[2020-01-07] MEDS: HEPARIN SODIUM,PORCINE 5000 UNITS/ML VIAL SUBCUT SCH ×3 (05:21→20:12)
[2020-01-07 08:00] VITALS: BP_SYST 105
[2020-01-07] MEDS: guaiFENesin ER 600 MG TAB PO SCH ×2 (09:00→20:10)
[2020-01-07] MEDS: FAMOTIDINE 20 MG TABLET PO SCH (09:00)
[2020-01-07] MEDS: CHOLECALCIFEROL (VITAMIN D3) 2,000 UNIT TABLET PO SCH (09:00)
[2020-01-07] MEDS: METOPROLOL TARTRATE 25 MG TABLET PO SCH ×2 (09:00→20:54)
[2020-01-07] MEDS: LIDOCAINE PATCH 5% 1 EA TP SCH (09:00)
[2020-01-07] MEDS: ASCORBIC ACID 500 MG TABLET PO SCH ×2 (09:00→20:10)
[2020-01-07 12:00] VITALS: BP_SYST 107
[2020-01-07 16:00] VITALS: BP_SYST 107
[2020-01-07 20:47] VITALS: BP_SYST 121
[2020-01-08 00:05] VITALS: BP_SYST 92
[2020-01-08] MEDS: HEPARIN SODIUM,PORCINE 5000 UNITS/ML VIAL SUBCUT SCH ×3 (05:15→22:14)
[2020-01-08 08:01] VITALS: BP_SYST 110
[2020-01-08] MEDS: METOPROLOL TARTRATE 25 MG TABLET PO SCH ×2 (08:46→22:09)
[2020-01-08] MEDS: ASCORBIC ACID 500 MG TABLET PO SCH ×2 (08:47→22:08)
[2020-01-08] MEDS: LIDOCAINE PATCH 5% 1 EA TP SCH (08:47)
[2020-01-08] MEDS: guaiFENesin ER 600 MG TAB PO SCH ×2 (08:47→22:08)
[2020-01-08] MEDS: CHOLECALCIFEROL (VITAMIN D3) 2,000 UNIT TABLET PO SCH (08:47)
[2020-01-08] MEDS: FAMOTIDINE 20 MG TABLET PO SCH (08:47)
[2020-01-08 13:05] VITALS: BP_SYST 108
[2020-01-08 16:05] VITALS: BP_SYST 108
[2020-01-08 17:28] VITALS: BP_SYST 108
[2020-01-08 20:00] VITALS: BP_SYST 111; BP_SYST 156
[2020-01-09 00:26] VITALS: BP_SYST 100
[2020-01-09] MEDS: HEPARIN SODIUM,PORCINE 5000 UNITS/ML VIAL SUBCUT SCH ×2 (06:56→13:36)
[2020-01-09] MEDS: FAMOTIDINE 20 MG TABLET PO SCH (07:50)
[2020-01-09] MEDS: ASCORBIC ACID 500 MG TABLET PO SCH ×2 (07:50→21:41)
[2020-01-09] MEDS: CHOLECALCIFEROL (VITAMIN D3) 2,000 UNIT TABLET PO SCH (07:51)
[2020-01-09] MEDS: LIDOCAINE PATCH 5% 1 EA TP SCH (07:51)
[2020-01-09] MEDS: guaiFENesin ER 600 MG TAB PO SCH (07:53)
[2020-01-09 08:00] VITALS: BP_SYST 115
[2020-01-09] MEDS: METOPROLOL TARTRATE 25 MG TABLET PO SCH ×2 (09:02→21:41)
[2020-01-09 12:00] VITALS: BP_SYST 108
[2020-01-09] MEDS ORDERED: guaiFENesin ER 600 MG TAB PO PRN (14:45)
[2020-01-09 16:00] VITALS: BP_SYST 124
[2020-01-09 20:00] VITALS: BP_SYST 106
[2020-01-09] MEDS: APIXABAN 2.5 MG TABLET PO SCH (21:42)
[2020-01-10] VITALS: BP_SYST 112
[2020-01-10 08:00] VITALS: BP_SYST 108
[2020-01-10] MEDS: APIXABAN 2.5 MG TABLET PO SCH ×2 (08:31→22:19)
[2020-01-10] MEDS: CHOLECALCIFEROL (VITAMIN D3) 2,000 UNIT TABLET PO SCH (08:40)
[2020-01-10] MEDS: ASCORBIC ACID 500 MG TABLET PO SCH ×2 (08:40→20:26)
[2020-01-10] MEDS: FAMOTIDINE 20 MG TABLET PO SCH (08:40)
[2020-01-10] MEDS: LIDOCAINE PATCH 5% 1 EA TP SCH (08:40)
[2020-01-10] MEDS: METOPROLOL TARTRATE 25 MG TABLET PO SCH ×2 (09:00→20:26)
[2020-01-10 12:00] VITALS: BP_SYST 108
[2020-01-10 16:00] VITALS: BP_SYST 112
[2020-01-10 20:00] VITALS: BP_SYST 114
[2020-01-11] VITALS: BP_SYST 110
[2020-01-11 08:00] VITALS: BP_SYST 119
[2020-01-11] MEDS: FAMOTIDINE 20 MG TABLET PO SCH (08:34)
[2020-01-11] MEDS: CHOLECALCIFEROL (VITAMIN D3) 2,000 UNIT TABLET PO SCH (08:35)
[2020-01-11] MEDS: ASCORBIC ACID 500 MG TABLET PO SCH ×2 (08:35→20:34)
[2020-01-11] MEDS: LIDOCAINE PATCH 5% 1 EA TP SCH (08:36)
[2020-01-11] MEDS: APIXABAN 2.5 MG TABLET PO SCH ×2 (08:37→20:49)
[2020-01-11] MEDS: METOPROLOL TARTRATE 25 MG TABLET PO SCH ×2 (09:24→20:34)
[2020-01-11 12:00] VITALS: BP_SYST 111
[2020-01-11 16:00] VITALS: BP_SYST 115
[2020-01-11 16:48] VITALS: BP_SYST 111
[2020-01-11 20:33] VITALS: BP_SYST 119
[2020-01-12 00:27] VITALS: BP_SYST 105
[2020-01-12 06:25] LABS: HEMATOCRIT 32.3 % (36-54); HEMOGLOBIN 10.6 g/dL (14.0-18.0); MEAN CORPUSCULAR HEMOGLOBIN 30 pg (27-31); MEAN CORPUSCULAR HGB CONC 33 % (32-36); MEAN CORPUSCULAR VOLUME 91 fL (79.0-98.0); PLATELET COUNT (AUTO) 392 K/uL (130-430); RED BLOOD CELL COUNT(AUTO) 3.57 MIL/uL (4.2-6.2); RED CELL DISTRIBUTION WIDTH 14.2 % (9.0-15.0); WHITE BLOOD COUNT (AUTO) 13.6 K/uL (4.8-10.8)
[2020-01-12 06:39] LABS: CALCIUM 8.6 mg/dL (8.4-11.0); CREATININE 1.02 mg/dL (0.55-1.30); POTASSIUM 4.1 mmol/L (3.5-5.1)
[2020-01-12 08:15] VITALS: BP_SYST 115
[2020-01-12] MEDS: FAMOTIDINE 20 MG TABLET PO SCH (08:17)
[2020-01-12] MEDS: ASCORBIC ACID 500 MG TABLET PO SCH ×2 (08:17→22:07)
[2020-01-12] MEDS: METOPROLOL TARTRATE 25 MG TABLET PO SCH ×2 (08:17→22:07)
[2020-01-12] MEDS: APIXABAN 2.5 MG TABLET PO SCH ×2 (08:17→22:07)
[2020-01-12] MEDS: CHOLECALCIFEROL (VITAMIN D3) 2,000 UNIT TABLET PO SCH (08:17)
[2020-01-12] MEDS: LIDOCAINE PATCH 5% 1 EA TP SCH (09:05)
[2020-01-12 10:30] LABS: BAND % (MANUAL) 1 % (0-6)
[2020-01-12 10:31] LABS: BASOPHILS % (MANUAL) 0 % (0-2); EOSINOPHILS % (MANUAL) 14 % (0-7); LYMPHOCYTES % (MANUAL) 23 % (20-46); MONOCYTES % (MANUAL) 9 % (0-11)
[2020-01-12 12:00] VITALS: BP_SYST 115
[2020-01-12 15:43] LABS: C-REACTIVE PROTEIN QUANT 9.7 mg/dL (0-0.5)
[2020-01-12 15:57] LABS: INR 1.1 (0.80-1.20); PROTHROMBIN TIME 10.9 SECS (9.5-12.5)
[2020-01-12 16:30] VITALS: BP_SYST 107
[2020-01-12 21:00] VITALS: BP_SYST 119
[2020-01-12 23:32] VITALS: BP_SYST 114
[2020-01-13 08:00] VITALS: BP_SYST 102
[2020-01-13] MEDS: APIXABAN 2.5 MG TABLET PO SCH ×2 (09:00→22:11)
[2020-01-13] MEDS: METOPROLOL TARTRATE 25 MG TABLET PO SCH ×2 (09:00→22:13)
[2020-01-13] MEDS: ASCORBIC ACID 500 MG TABLET PO SCH ×2 (09:00→22:13)
[2020-01-13] MEDS: FAMOTIDINE 20 MG TABLET PO SCH (09:00)
[2020-01-13] MEDS: CHOLECALCIFEROL (VITAMIN D3) 2,000 UNIT TABLET PO SCH (09:00)
[2020-01-13] MEDS: LIDOCAINE PATCH 5% 1 EA TP SCH (09:00)
[2020-01-13 12:00] VITALS: BP_SYST 111
[2020-01-13 16:00] VITALS: BP_SYST 125
[2020-01-13 20:00] VITALS: BP_SYST 149
[2020-01-14] VITALS: BP_SYST 142
[2020-01-14 08:00] VITALS: BP_SYST 112
[2020-01-14 09:05] LABS: BASOPHILS # (AUTO) 0.1 K/uL (0.0-0.2); EOSINOPHILS % (AUTO) 7.7 % (0.0-4.0); HEMATOCRIT 34.1 % (36-54); HEMOGLOBIN 11.4 g/dL (14.0-18.0); LYMPHOCYTES % (AUTO) 36.4 % (20.5-51.5); MEAN CORPUSCULAR HEMOGLOBIN 30 pg (27-31); MEAN CORPUSCULAR HGB CONC 34 % (32-36); MEAN CORPUSCULAR VOLUME 90 fL (79.0-98.0); MONOCYTES # (AUTO) 1.2 K/uL (0.0-1.0); MONOCYTES % (AUTO) 8.7 % (1.7-9.3); NEUTROPHILS # (AUTO) 6.3 K/uL (1.8-7.7); NEUTROPHILS % (AUTO) 46.2 % (40.0-70.0); PLATELET COUNT (AUTO) 455 K/uL (130-430); RED BLOOD CELL COUNT(AUTO) 3.79 MIL/uL (4.2-6.2); RED CELL DISTRIBUTION WIDTH 14.4 % (9.0-15.0); WHITE BLOOD COUNT (AUTO) 13.6 K/uL (4.8-10.8)
[2020-01-14] MEDS: CHOLECALCIFEROL (VITAMIN D3) 2,000 UNIT TABLET PO SCH (09:29)
[2020-01-14] MEDS: ASCORBIC ACID 500 MG TABLET PO SCH (09:29)
[2020-01-14] MEDS: FAMOTIDINE 20 MG TABLET PO SCH (09:29)
[2020-01-14] MEDS: LIDOCAINE PATCH 5% 1 EA TP SCH (09:29)
[2020-01-14] MEDS: METOPROLOL TARTRATE 25 MG TABLET PO SCH (09:29)
[2020-01-14] MEDS: APIXABAN 2.5 MG TABLET PO SCH (09:30)
[2020-01-14 10:55] VITALS: BP_SYST 112
[2020-01-14 12:00] VITALS: BP_SYST 118
[2020-01-14 15:27] VITALS: BP_SYST 118
[2020-01-14 16:00] VITALS: BP_SYST 118
== END 2020-01-14 19:15 | DRG 871 ==
LOC: SED 10:11 → EEVIPCON 10:11 → SED 14:29 → EEVIPCON 15:21 → STU 15:21
PROVIDERS: ADMIT Internal Medicine; ATTEND Internal Medicine
DX: A41.89 Other specified sepsis (principal); E43 Unspecified severe protein-calorie malnutrition; N17.0 Acute kidney failure with tubular necrosis; J96.01 Acute respiratory failure with hypoxia; U07.1 COVID-19; J12.89 Other viral pneumonia; N39.0 Urinary tract infection, site not specified; E87.1 Hypo-osmolality and hyponatremia; E86.0 Dehydration; R65.20 Severe sepsis without septic shock; A41.2 Sepsis due to unspecified staphylococcus; D64.9 Anemia, unspecified; R79.89 Other specified abnormal findings of blood chemistry; Z79.01 Long term (current) use of anticoagulants
CPT/HCPCS: 36415; 36600; 71045; 80048; 80053; 80202-TC; 81000-TC; 82306; 82550-TC; 82553-TC; 82728; 82803-TC; 82962; 83605; 83615-TC; 83735-TC; 83880; 84100-TC; 84443-TC; 84484; 85007; 85025; 85027; 85379; 85384-TC; 85610-TC; 85651-TC; 85730-TC; 86140; 86710; 87040-TC; 87070-TC; 87086; 87186-TC; 87205-TC; 93005; 93970; 94640; 94760; 96365; 96367; 97110-GP; 97116-GP; 97530-GP; 99291; G0378; J0456; J0696; J1170; J1644; J2270; J2543; J3370; J7030; J7040; J7050; J7060; J7613; Q0163; U0002; U0003-CS